=== PATIENT | male | born 1985 | race Caucasian/White ===

== ENCOUNTER 2017-06-11 19:47 | Emergency (ER) | payer OTHER ==
[2017-06-11 22:21] LABS: HEMOGLOBIN 14.4 gm/dl (14.0-17.5); WHITE BLOOD COUNT 11.6 K/UL (4.5-11.0)
[2017-06-11 22:38] LABS: BUN/CREATININE RATIO 11 (0-10)
== END 2017-06-12 01:28 | disposition home or self-care (01) ==
LOC: ER1 19:47
PROVIDERS: Family Medicine
DX: R10.9 Unspecified abdominal pain (principal); R10.817 Generalized abdominal tenderness; R11.2 Nausea with vomiting, unspecified; R63.0 Anorexia; Z90.49 Acquired absence of other specified parts of digestive tract
CPT/HCPCS: 36415; 80053; 81001; 82150; 83690; 85025; 96361; 96374; 96375; 96376; 99284; C9113; J2270; J2405; J7050; Q9962

== ENCOUNTER 2022-05-01 19:03 | Emergency (ER) | payer OTHER ==
[~2022-05-01 19:03] MED LIST: BACTRIM DS TAB1 EACH PO; CELEBREX200 MG PO; DELSYM30 MG/5 ML PO; GABAPENTIN300 MG PO; PERCOCET 5-3251 EACH PO; PHENERGAN 12.12.5 M1 PO; PREDNISONE 50 M50 MG PO; VALIUM 10 MG TA10 MG PO; VENTOLIN HFA 66.7 GM INH
[2022-05-01] MEDS ORDERED: NARCAN4 MG (20:55)
[2022-05-01 21:32] LABS: HEMOGLOBIN 13.2 gm/dl (14.0-17.5); RED BLOOD COUNT 4.36 M/UL (4.20-5.50); WHITE BLOOD COUNT 18.4 K/UL (4.5-11.0)
[2022-05-01 21:53] LABS: BUN/CREATININE RATIO 18 (0-10)
== END 2022-05-02 00:02 | disposition home or self-care (01) ==
LOC: ER1 19:03
PROVIDERS: Emergency Medicine
DX: R10.84 Generalized abdominal pain (principal); F11.10 Opioid abuse, uncomplicated
CPT/HCPCS: 80053; 83690; 85025; 93005; 96374; 99284; J1885

== ENCOUNTER 2022-05-14 22:30 | Emergency (ER) | payer SELFPAY ==
[~2022-05-14 22:30] MED LIST changes: +NARCAN4 MG
== END 2022-05-14 22:43 | disposition left against medical advice (07) ==
LOC: ER1 22:30
DX: Z53.21 Procedure and treatment not carried out due to patient leaving prior to being seen by health care provider (principal)